=== PATIENT | male | born 1945 | race Caucasian/White ===

== ENCOUNTER 2023-11-16 08:50 | Day surgery (SDC) | payer MEDICARE, OTHER ==
[2023-11-16 09:13] VITALS: TEMP 97
[2023-11-16] MEDS: LACTATED RINGERS 1,000 ML IV SCH (09:58)
[2023-11-16] MEDS: IV FLUID CONTINUATION 1,000 ML IV ONE (09:58)
[2023-11-16] MEDS ORDERED: PROPOFOL 10 MG/ML 20 ML VIAL IV ONE (10:01)
--- NOTE | 2023-11-16 10:21 | P.PCN ---
Date of Procedure: 11/16/23 Procedure(s) Performed: BRIEF HISTORY: Patient is a 78-year-old pleasant white male scheduled for an elective colonoscopy as a part of evaluation by history of colon polyps. Last colonoscopy was 5 years ago and was noted to have a tubular adenoma. PROCEDURE PERFORMED: Colonoscopy snare polypectomy. PREOPERATIVE DIAGNOSIS: History of colon polyp. IV sedation per Anesthesia. PROCEDURE: After informed consent was obtained, the patient, was brought into the endoscopy unit. IV sedation was administered by Anesthesia under continuous monitoring. Digital rectal examination was normal. Initially the Olympus CF-160 flexible video colonoscope was then inserted in the rectum, gradually advanced into the cecum without any difficulty. Careful examination was performed as the scope was gradually being withdrawn. Ileocecal valve and the appendiceal orifice were visualized and appeared normal. Prep was excellent. Mucosa of the cecum, appeared normal. Descending colon there was a 3 mm and an 8 mm polyp removed by cold snare polypectomy. Rest of the ascending colon, transverse colon, descending colon, sigmoid colon, and rectum appeared normal. Rectum there was a 5 mm polyp removed by cold snare polypectomy. Scattered left-sided diverticulosis seen. Retroflexion was performed in the rectum and no lesions were seen. The patient tolerated the procedure well. IMPRESSION: 3 mm and 8 mm ascending colon polyp status post cold snare polypectomy 5 mm rectal polyp status post cold snare polypectomy Scattered sigmoid diverticulosis RECOMMENDATIONS: Findings of this examination were discussed with the patient the patient as well as his family. He was advised to follow-up with the biopsy results. If the biopsy reveals adenoma he can have repeat colonoscopy in 3 years..
[2023-11-16 10:46] VITALS: BP 129/78; PULSE 78; RESP 16
== END 2023-11-16 11:06 | disposition home or self-care (01) ==
LOC: ORWHC2ENDO 08:50
PROVIDERS: ATTEND Internal Medicine Gastroenterology
DX: D12.7 Benign neoplasm of rectosigmoid junction
CPT/HCPCS: 45385; 88305